=== PATIENT | male | born 1965 | race African-American/Black ===

== ENCOUNTER 2017-06-09 07:59 | Day surgery (SDC) | payer OTHER ==
[2017-06-05 13:31] VITALS: BMI 37.9
[2017-06-09] MEDS ORDERED: BUPIVACAINE HCL/PF 2.5 MG/ML - 30 ML VIAL IJ ONE (09:33)
[2017-06-09] MEDS ORDERED: MIDAZOLAM HCL 2 MG/2 ML SINGLE DOSE VIAL ONE (09:38)
[2017-06-09] MEDS ORDERED: SUCCINYLCHOLINE CHLORIDE 200 MG/10 ML VIAL ONE (09:38)
[2017-06-09] MEDS ORDERED: PROPOFOL 20 ML ONE (09:38)
[2017-06-09] MEDS ORDERED: KETOROLAC TROMETHAMINE 30 MG/1 ML VIAL ONE (09:39)
[2017-06-09] MEDS ORDERED: LIDOCAINE HCL/PF 2% SDV 5ML VIAL ONE (09:39)
[2017-06-09] MEDS ORDERED: ONDANSETRON 4 MG/2 ML VIAL ONE (09:39)
[2017-06-09] MEDS ORDERED: ceFAZolin SODIUM 1 GM VIAL ONE (09:39)
[2017-06-09] MEDS ORDERED: DEXAMETHASONE SOD PHOSPHATE 4 MG/1 ML VIAL ONE (09:39)
[2017-06-09] MEDS ORDERED: GLYCOPYRROLATE 0.2 MG/1 ML VIAL ONE (09:39)
[2017-06-09] MEDS ORDERED: LIDOCAINE HCL 2% JELLY (5 ML/TUBE) ONE (09:39)
[2017-06-09] MEDS ORDERED: BUPIVACAINE HCL/PF 0.25% (2.5MG/ML) 10 ML VIAL IJ ONE (10:19)
[2017-06-09] MEDS ORDERED: ONDANSETRON 4 MG/2 ML VIAL IVPUSH PRN (10:51)
[2017-06-09] MEDS ORDERED: oxyCODONE HCL 5 MG TABLET PO PRN ×2 (10:51)
[2017-06-09] MEDS ORDERED: PROMETHAZINE HCL 25 MG/1 ML VIAL IVPUSH PRN (10:51)
[2017-06-09 12:14] VITALS: TEMP 97.9
[2017-06-09 13:33] VITALS: PULSE 84
[2017-06-09 13:35] VITALS: BP 145/86
--- NOTE | 2017-06-12 20:21 | OP ---
DATE OF OPERATION: 06/09/2017 PREOPERATIVE DIAGNOSIS: 1. Left knee medial and lateral meniscal tear. 2. Left knee cartilage injury. 3. Left knee synovitis. POSTOPERATIVE DIAGNOSIS: 1. Left knee medial and lateral meniscal tear. 2. Left knee cartilage injury. 3. Left knee synovitis. PROCEDURE: 1. Left knee arthroscopy with partial meniscectomy, medial and lateral meniscus. 2. Left knee arthroscopy with chondroplasty and abrasion plasty. 3. Left knee arthroscopy with synovectomy, including removal of medial plica. SURGEON: Bhargavi Alatorre MD [facility] NURSE: VERO Patterson FINDINGS: 1. Medial meniscus body and posterior horn tear. 2. Lateral meniscus posterior horn tear. 3. Synovitis patellofemoral medial and lateral notch areas. 4. Anterior grade 2-4 cartilage injury medial femoral condyle and tibial plateau. 5. ACL and PCL intact. 6. Central grade 4 cartilage injury medial tibial plateau. 7. Central grade 2 cartilage injury lateral tibial plateau. 8. Central grade 2 cartilage injury patellofemoral trochlea and patellofemoral joint. DESCRIPTION OF PROCEDURE: Informed consent was obtained. The patient was taken to the operating room where the left lower extremity was prepped and draped in a sterile fashion. A tourniquet was placed on the left upper thigh but not inflated. Using standard arthroscopic technique, a lateral incision and portal were made which allowed for introduction of the camera into the suprapatellar bursa. This was then taken to the medial joint line where under direct visualization, a medial incision and portal were made. Excessive synovium noted in the medial, lateral, patellofemoral and notch area was removed by the up-biting shaver and Bovie cautery. This was found to bring inflammatory tissue into the joint surface, a source of joint pain and dysfunction. Probing of the medial and lateral meniscus found tears described in the findings. These were removed with an up-biting shaver and taken back to a stable rim. Grade 2-3 degenerative changes were treated with chondroplasty, removing all flaking surfaces with low setting Bovie used along the periphery. Grade 4 changes were treated with abrasion-plasty. All areas of the knee were once again re-examined. The knee was then drained. A single suture was placed on all portals. Sterile dressing was placed. The patient was transferred to the recovery room. BHARGAVI ALATORRE M.D. [id number]
== END 2017-06-09 14:00 | disposition home or self-care (01) ==
LOC: FASU 07:59
PROVIDERS: ATTEND Orthopaedic Surgery
PROC: 0SBD4ZZ Excision of Left Knee Joint, Percutaneous Endoscopic Approach (ICD-10-PCS; 2017-06-09)
PROC: 0SBD4ZZ Excision of Left Knee Joint, Percutaneous Endoscopic Approach (ICD-10-PCS; 2017-06-09)
PROC: 0SBD4ZZ Excision of Left Knee Joint, Percutaneous Endoscopic Approach (ICD-10-PCS; principal; 2017-06-09 09:30)
DX: S83.242A Other tear of medial meniscus, current injury, left knee, initial encounter (principal); S83.282A Other tear of lateral meniscus, current injury, left knee, initial encounter; S83.8X2A Sprain of other specified parts of left knee, initial encounter; M65.862 Other synovitis and tenosynovitis, left lower leg; X58.XXXA Exposure to other specified factors, initial encounter; Y93.9 Activity, unspecified; Y92.9 Unspecified place or not applicable
CPT/HCPCS: 94760

== ENCOUNTER 2023-06-23 04:21 | Day surgery (SDC) | payer OTHER ==
[2023-06-14 13:49] VITALS: BMI 40.2
[~2023-06-23 04:21] MED LIST: DEXAMETHASONE SOD PHOSPHATE 10 MG/1 ML VIAL IM ONE; IOHEXOL 180 MG/1 ML ML IJ ONE; LIDOCAINE HCL 1% PRESERVATIVE FREE - 30ML VIAL IJ ONE
[2023-06-23] MEDS ORDERED: DEXAMETHASONE SOD PHOSPHATE 10 MG/1 ML VIAL ONE (07:11)
[2023-06-23] MEDS ORDERED: LIDOCAINE HCL/PF 1% SDV 5ML VIAL ONE (07:11)
[2023-06-23] MEDS ORDERED: ACETAMINOPHEN 500 MG TABLET (FP) PO PRN (10:20)
[2023-06-23] MEDS ORDERED: LIDOCAINE HCL 1% PRESERVATIVE FREE - 30ML VIAL IJ ONE (10:38)
[2023-06-23] MEDS ORDERED: IOHEXOL 180 MG/1 ML ML IJ ONE (10:46)
[2023-06-23] MEDS ORDERED: DEXAMETHASONE SOD PHOSPHATE 10 MG/1 ML VIAL IM ONE (10:47)
[2023-06-23 11:08] VITALS: RESP 18
[2023-06-23 11:31] VITALS: BP 148/91; PULSE 67; TEMP 97.9
== END 2023-06-23 11:25 | disposition home or self-care (01) ==
LOC: JASU-SURG 04:21
PROVIDERS: ATTEND Pain Medicine Pain Medicine
PROC: 3E0R3BZ Introduction of Anesthetic Agent into Spinal Canal, Percutaneous Approach (ICD-10-PCS; 2023-06-23)
PROC: 3E0R33Z Introduction of Anti-inflammatory into Spinal Canal, Percutaneous Approach (ICD-10-PCS; principal; 2023-06-23 10:00)
DX: M54.16 Radiculopathy, lumbar region (principal)
CPT/HCPCS: 76000-TC-FY; J1100

== ENCOUNTER 2023-08-04 05:03 | Day surgery (SDC) | payer OTHER ==
[2023-07-18 13:31] VITALS: BMI 39.3
[~2023-08-04 05:03] MED LIST changes: +ACETAMINOPHEN 500 MG TABLET (FP) PO PRN; -DEXAMETHASONE SOD PHOSPHATE 10 MG/1 ML VIAL IM ONE; -IOHEXOL 180 MG/1 ML ML IJ ONE; -LIDOCAINE HCL 1% PRESERVATIVE FREE - 30ML VIAL IJ ONE
[2023-08-04] MEDS ORDERED: LIDOCAINE HCL/PF 1% SDV 5ML VIAL ONE (07:28)
[2023-08-04] MEDS ORDERED: BUPIVACAINE HCL/PF 0.75% 10 ML VIAL ONE (07:28)
[2023-08-04] MEDS: LIDOCAINE 1% P/F 10 MG/ML VIAL INF ONE ×2 (12:51→13:07)
[2023-08-04] MEDS: BUPIVACAINE 0.75% IN DEXTROSE/PF 2ML AMPULE NR ONE (13:10)
[2023-08-04 13:37] VITALS: BP 138/86; PULSE 82; RESP 16
[2023-08-04 13:40] VITALS: TEMP 97.6
[2023-08-04] MEDS ORDERED: ACETAMINOPHEN 500 MG TABLET (FP) PO PRN (14:55)
== END 2023-08-04 13:59 | disposition home or self-care (01) ==
LOC: JASU-SURG 05:03
PROVIDERS: ATTEND Pain Medicine Pain Medicine
PROC: 3E0T3BZ Introduction of Anesthetic Agent into Peripheral Nerves and Plexi, Percutaneous Approach (ICD-10-PCS; principal; 2023-08-04 13:15)
DX: M47.816 Spondylosis without myelopathy or radiculopathy, lumbar region (principal)
CPT/HCPCS: 76000-TC-FY